=== PATIENT | male | born 1965 | race Caucasian/White ===

== ENCOUNTER 2021-02-10 14:15 | Inpatient (IN) | payer BC ==
[~2021-02-10] VITALS: Ht 185.4 cm; Wt 108.9 kg
[~2021-02-10 14:15] MED LIST: AMBIEN 10 MG TA10 MG PO; FLEXERIL PO; GLIMEPIRIDE4 MG PO; JARDIANCE25 MG PO; LEXAPRO20 MG PO; LIPITOR40 MG PO; LISINOPRIL10 MG PO; MELOXICAM15 MG PO; METFORMIN HCL500 MG PO; NORCO7.5 PO; SHINGRIX ADJUV0.5 ML IM; [UNRECOGNIZED DRUG - OTHER] IM
--- NOTE | 2021-02-10 18:21 | NUR ---
PT TRANSFERED FROM [facility] TO ROOM 209. IN ORIENTED TO ROOM AND BEDSPACE. MADE AWARE THAT PATIENT HAD ARRIVED ON THE UNIT. ADMISSION ASSESSMENT / HISTORY CHARTED - IN THE ROOM. UP AD CHAPARRITA STEADY ON FEET. DANIELE DIET AND FLUIDS. NO CO'S AT THE PRESENT TIME.
--- NOTE | 2021-02-10 18:36 | NUR ---
pt with co's of chest pain - dr at bedside - ntg increased to 15 mcs and ekg to be done - ordering trop. pt sitting in bed eating dinner.
[2021-02-10 20:07] VITALS: BP 132/79
[2021-02-11 00:08] VITALS: BP 108/70
[2021-02-11 04:02] VITALS: BP 123/81
[2021-02-11 04:47] LABS: HEMATOCRIT 40.1 % (42.0-52.0); HEMOGLOBIN 13.8 gm/dL (14.0-18.0); MCH 29.5 pg (26.0-34.0); MCHC 34.4 g/dL (28.0-37.0); MCV 85.7 fL (80.0-100.0); RBC 4.68 mil/uL (4.50-6.00); RDW 13.7 % (10.5-14.5); WBC 8.6 thou/uL (4.0-11.0)
[2021-02-11 05:07] LABS: ALBUMIN 3.5 g/dL (3.4-5.0); CALCIUM 8.8 mg/dL (8.5-10.1); CREATININE 0.9 mg/dL (0.7-1.3); POTASSIUM 3.9 mmol/L (3.5-5.1); TOTAL BILIRUBIN 0.5 mg/dL (0.2-1.0)
--- NOTE | 2021-02-11 05:26 | NUR ---
ASSESSMENT DOCUMENTED.PT A/OX3.ADMITTED W/CHEST PAIN.PT ON NITRO DRIP.VSS.PT CONTINUOUS TO C/O MILD CHEST PAIN,RATING PAIN AT 2-3 ON 1-10 PAIN SCALE.DENIES SOA OR PAIN RADIATION.RIGHT GROIN DRSG INTACT.NO HEMATOMA OR ACTIVE.RFA CARDIAC XENIA ACCESS UNDERGRADUATE ADVISOR,W/O HEMATOMA.IVF INFUSING.SR ON MONITOR.RA W/O RESP DISTRESS.VOIDING VIA BR.UP AD CHAPARRITA.PT ANTICPATING CARDIAC XENIA PROCEDURE TODAY.WILL CONT TO MONITOR PER POC.
--- NOTE | 2021-02-11 07:18 | EKG ---
[address] [address] ELECTROCARDIOGRAM REPORT Name: GEERAMEZTANYA Room #: 209-P ADM IN M.R.#: [id number] Admission: 02/10/21 Attend Phys: Onel Muniz MD Discharge: Date of : 61 Report #: [id number] [facility] Test Date: 2021-02-10 Test Time: 18:39:13 Pat Name: TANYA GEE Department: Room: 209 P Gender: M Mineral Mixer: FSCHWALBE : 1965 Requested By: Bonnie Garibay Order Number: [id number] MD: Barrington Arevalo Measurements Intervals [place] Rate: 87 P: 63 ID: 165 QRS: 66 QRSD: 106 T: 64 QT: 381 QTc: 459 Interpretive Statements Sinus rhythm No previous ECG available for comparison Electronically Signed On 02-11-2021 7:18:38 CDT by Barrington Arevalo [email or web address] <ELECTRONICALLY SIGNED> By: Barrington Arevalo MD, [facility] 02/11/21 0718 1839 1839 Barrington Arevalo MD, FACC /EPI
[2021-02-11 07:28] VITALS: BP 140/90
[2021-02-11 11:15] VITALS: BP 134/95
--- NOTE | 2021-02-11 17:04 | CATHLAB ---
[facility] [place] [address] INVASIVE PROCEDURE REPORT Name: TANYA GEE Room #: 209-P ADM IN M.R.#: [id number] Admission: 02/10/21 Attend Phys: Onel Muniz MD Discharge: Date of : 61 Report #: [id number] REPORT FOR: cc: FAM - No family physician/PCP FAM - No family physician/PCP Hector Castillo MD ~ APPROVED REPORT Study performed: 02/11/2021 12:26:19 Patient Details Patient Status: In-Patient Room #: The patient is a 55 year-old male Event Personnel Hector Castillo Legal Document Assistant, Saqib Thompson RN RN, Thalia Saldivar RTR, ESCALATOR OPERATOR Monitor, Jabier Zavaleta RTR Scrub, Barbara Walls RTR Monitor Procedures Performed Art Access - L femoral artery* FLIP Place w/wo Plasty Single RCA [id number] 24203 Initial Mod Sed Same Phys/QHP Gr5y 658140 90080 Mod Sed Same Phys/QHP Ea 650352 Hemostasis w/ Mynx Indication Non-STEMI , Dyspnea, Chest pain, The patient presented with chest pain and dyspnea to [facility]. Troponin levels were positive, diagnosed with a non-ST elevation NC. He underwent cardiac catheterization on February 10, found to have severe occlusion involving the RCA. PCI was attempted but unsuccessful due to inability to cross the mid RCA stenosis with a balloon. The patient [facility] for PCI versus CABG. After further discussion with the patient, will attempt PCI. Risk Factors Hypercholesterolemia, Coronary Artery DiseaseHypertension, Diabetes Tobacco History () Procedure Narrative The Left Groin^ was infiltrated with 1% Lidocaine subcutaneous anesthesia. A PINNACLE 6FR Sheath #[id number] sheath was inserted into the LFA^. Coronary angiography was performed using coronary diagnostic catheters. The right coronary system was accessed and visualized with a LAUNCHER 6FR AL75 #[id number] catheter. Closure device [facility] [address] [place] [address] INVASIVE PROCEDURE REPORT Name: TANYA GEE Room #: 209-P [facility] IN M.R.#: [id number] Admission: 02/10/21 Attend Phys: Onel Muniz MD Discharge: Date of : 61 Report #: [id number] was deployed with a Fr MYNXGRIP 6/7F #[id number]. The patient tolerated the procedure well and there were no complications associated with the procedure. There was no hematoma. Intraoperative Conscious Sedation Sedation start time: 12:44 Case end Time: 14:41 Fentanyl 50 mcg Versed 1 mg Fluoro Time: 39.00 minutes Dose: DAP 55012.90 cGycm2 6773 mGy Contrast Type and Amount: Omnipaque 295 ml Coronary Angiography The patient's coronary anatomy is right dominant. Diagnostic Cath Right Coronary Please see the diagnostic cardiac catheterization report from [facility] performed on February 10. There are severe lesions in the proximal and mid segments of the RCA. The tightest lesion is in the midsegment, at least 95%. This vessel is moderately calcified throughout. Hemodynamics The aortic pressure is 148/81 mmHg with a mean of 111 mmHg. PCI Technique Lesion Percutaneous coronary intervention was performed on the mid right coronary artery. The lesion stenosis prior to intervention was 95% with PAULIE 3 flow. A LAUNCHER 6FR AL75 #[id number] Guide Catheter was used to engage the RCA ostium. A Luge Wire .014 x 182CM #213642 Interventional Guidewire was used to cross the lesion. BALLOON DILATION A Balloon catheter MINI TREK RX 1.5 X 12 #[id number] was inserted and inflated up to 18.00atm for 4seconds. Additional Inflation: 18.00atm for 10seconds. A balloon catheter Mini Trek 2.0x15mm was inserted and inflated up to 20Atm for 34 sec/min: additional inflation at 20Atm for 10sec/min. A balloon catheter NC Trek 2.5x12mm was inserted and inflated up to 20Atm for 27sec/min: additional inflation at 20Atm for 15sec/min. A balloon catheter NC Trek 3.85j34go was inserted and inflated up to 18Atm for 25sec/min: additional inflation at 18Atm for 13sec/min, additonal inflation at 18Atm for 12 sec/min. STENT DEPLOYMENT A stent RESOLUTE DOMINIQUE RX 3.5 X 15 #[id number] was inserted and inflated [facility] [address] [place] [address] INVASIVE PROCEDURE REPORT Name: TANYA GEE Room #: 209-P [facility] IN M.R.#: [id number] Admission: 02/10/21 Attend Phys: Onel Muniz MD Discharge: Date of : 61 Report #: [id number] up to 16.00atm for 26seconds. POST STENT DEPLOYMENT BALLOON DILATION A Balloon catheter TREK NC RX 4.0 X 12 #[id number] was inserted and inflated up to 16.00atm for 15seconds. A ballon catheter NC Trek RX 4.00x8mm was inserted and inflated up to 18Atm for 16sec/min: additional inflation at 18Atm for 9sec/min Final angiography reveals 5 % stenosis with PAULIE 3 flow. COMMENTS Initially, a JR4 guide catheter was used for the PCI. I placed a luge wire into the distal RCA branches. Attempts at crossing a 1.5 mm compliant balloon across the mid RCA stenosis was unsuccessful. The JR4 guide was switched out to an Amplatz left 0.75 guide catheter. Again, attempts at crossing with a 1.5 mm balloon was unsuccessful. I then placed a BMW wire as a devi wire down into the distal RCA. This allowed me to pass a 1.5 mm balloon into the mid segment. This was followed by a 2.0 mm balloon. Both balloons were able to be inflated. This was followed by 2.5 mm noncompliant balloon, followed by a 3.0 mm noncompliant balloon. All these attempts had to use a devi wire. I was finally able to place 3.5 mm drug-eluting stents in the mid RCA segment. Another 3.5 mm stent was placed in the proximal segment. Both stents were postdilated with a 4.0 mm noncompliant balloon. PCI Technique Lesion 2 Percutaneous Coronary Intervention was performed on the proximal right coronary artery. The lesion stenosis prior to intervention was 70% with PAULIE 3 flow. A LAUNCHER 6FR AL75 #[id number] Guide Catheter was used to engage the ostium. A Luge Wire .014 x 182CM #096612 Interventional Guidewire was used to cross the lesion. Balloon Dilation A Balloon catheter TREK NC RX 2.5 X 12 #[id number] was inserted and inflated up to 20atm for 13seconds. Additional Inflation: 20atm for 9seconds. Stent Deployment A stent RESOLUTE DOMINIQUE RX 3.5 X 15 #[id number] was inserted and inflated up to 20.00atm for 16seconds. Post Stent Deployment Balloon Dilation A Balloon catheter TREK NC RX 4.0 X 12 #[id number] was inserted and inflated up to 20.00atm for 18seconds. [facility] [address] [place] [address] INVASIVE PROCEDURE REPORT Name: TANYA GEE Room #: 209-P [facility] IN .R.#: [id number] Admission: 02/10/21 Attend Phys: Onel Muniz MD Discharge: Date of : 61 Report #: [id number] Final angiography reveals 5 % stenosis with PAULIE 3 flow. Conclusion 1. Successful PCI with placement of 2 drug-eluting stents into the proximal and mid segments of the RCA. This was a complex PCI involving devi wire system right from the start. 2. Recommend dual antiplatelet therapy and aggressive risk factor management. <ELECTRONICALLY SIGNED> By: Hector Castillo MD 02/11/21 1704 170 1704 Hector Castillo MD /INF
--- NOTE | 2021-02-11 18:22 | NUR ---
assessment as charted - pt off unit for noon assess, in the superintendent geophysical laboratory. had 2 stents placed to the rca today. groing site and vitals stable post procedure. pt jarrett diet and fluids. no co's of pain or nasuea. remains on bedrest until 184. meds as per mar - no co's at the present time.
[2021-02-11 19:25] VITALS: BP 123/66
[2021-02-11 23:47] VITALS: BP 114/71
--- NOTE | 2021-02-12 03:39 | NUR ---
ASSESSMENTS CHARTED, MEDS CHARTED GIVEN. PATIENT STILL ON BEDREST AT START OF SHIFT. WAS IN THE CATHLAB DURING DAY AND RECEIVED TWO STENTS TO THE RCA. PATIENT STATED HIS CHEST PAIN WAS GONE, BUT HE WAS CONCERNED WITH HIS HEART RATE WHICH HAD STEADILY BEEN INCREASING. SPOKE WITH DR. DEL VALLE GOT A ONE TIME ORDER. LEFT GROIN SITE IS C/D/I/SOFT. PATIENT UP AT CHAPARRITA IN ROOM. ALERT AND ORIENTED, AGREES TO CALL IF NEEDED. FALL PRECAUTIONS IN PLACE DURING SHIFT.
[2021-02-12 04:18] VITALS: BP 142/7; BP 142/75
[2021-02-12 05:20] LABS: HEMATOCRIT 40.5 % (42.0-52.0); HEMOGLOBIN 13.7 gm/dL (14.0-18.0); MCH 29.2 pg (26.0-34.0); MCHC 33.8 g/dL (28.0-37.0); MCV 86.5 fL (80.0-100.0); RBC 4.69 mil/uL (4.50-6.00); RDW 13.9 % (10.5-14.5); WBC 9.5 thou/uL (4.0-11.0)
[2021-02-12 06:12] LABS: ALBUMIN 3.5 g/dL (3.4-5.0); CREATININE 0.9 mg/dL (0.7-1.3); POTASSIUM 3.9 mmol/L (3.5-5.1); TOTAL BILIRUBIN 0.3 mg/dL (0.2-1.0)
--- NOTE | 2021-02-12 07:09 | EKG ---
[address] [place] [address] ELECTROCARDIOGRAM REPORT Name: RAMEZ GEEAN Room #: 209-P ADM IN M.R.#: [id number] Admission: 02/10/21 Attend Phys: Onel Muniz MD Discharge: Date of : 61 Report #: [id number] [facility] Test Date: 2021-02-11 Test Time: 15:08:23 Pat Name: TANYA GEE Department: Room: 209 P Gender: M Counselor Manager: FSCHWALBE : 1965 Requested By: Hector Castillo Order Number: [id number] MD: Barrintgon Arevalo Measurements Intervals [place] Rate: 88 P: 57 AK: 157 QRS: 55 QRSD: 105 T: 72 QT: 385 QTc: 466 Interpretive Statements Sinus rhythm Compared to ECG 02/10/2021 18:39:13 No significant changes Electronically Signed On 02-12-2021 7:08:45 CDT by Barrington Arevalo [email or web address] <ELECTRONICALLY SIGNED> By: Barrington Arevalo MD, [facility] 02/12/21 0708 1508 1508 Barrington Arevalo MD, FACC /EPI
[2021-02-12 07:35] VITALS: BP 151/77
--- NOTE | 2021-02-12 08:18 | EKG ---
[address] [facility] [place] [address] ELECTROCARDIOGRAM REPORT Name: TANYA GEE Room #: 209-P ADM IN M.R.#: [id number] Admission: 02/10/21 Attend Phys: Onel Muniz MD Discharge: Date of : 61 Report #: [id number] [facility] Test Date: 2021-02-12 Test Time: 07:28:51 Pat Name: TANYA GEE Department: Room: 209 P Gender: M Artificial Flower Maker: RODOLFO : 1965 Requested By: Hector Castillo Order Number: [id number] MD: Cesar Pedroza Measurements Intervals [place] Rate: 100 P: 24 NC: 157 QRS: 56 QRSD: 104 T: 67 QT: 361 QTc: 466 Interpretive Statements Sinus tachycardia Small inferior Q waves Compared to ECG 02/11/2021 15:08:23 No significant change was found Electronically Signed On 02-12-2021 8:18:04 CDT by Cesar Pedroza [email or web address] <ELECTRONICALLY SIGNED> By: Cesar Pedroza MD, [facility] 02/12/2118 0728 Cesar Pedroza MD, FACC /EPI
[2021-02-12] MEDS ORDERED: ADULT LOW DOSE81 MG PO (08:55)
[2021-02-12] MEDS ORDERED: NITROGLYCERIN0.4 MG SUBLING (08:55)
[2021-02-12] MEDS ORDERED: EFFIENT10 MG PO (08:55)
[2021-02-12 11:06] VITALS: BP 141/73
--- NOTE | 2021-02-12 11:27 | 2DMMODE ---
[facility] [place] [address] 2 D/M-MODE ECHOCARDIOGRAM Name: TANYA GEE Room #: 209-P ADM IN M.R.#: [id number] Admission: 02/10/21 Attend Phys: Onle Muniz MD Discharge: Date of : 61 Report #: [id number] REPORT FOR: cc: AMIE - Kary family physician/PCP AMIE - Kary family physician/PCP Barrington Arevalo MD [facility] ~ APPROVED REPORT Study performed: 02/12/2021 08:01:01 EXAM: Comprehensive 2D, Doppler, and color-flow Echocardiogram Patient Location: In-Patient Room #: 209 Status: routine BSA: 2.32 HR: 86 bpm BP: 134/95 mmHg Rhythm: NSR Other Information Study Quality: Good Risk Factors: Cardiac Risk Factors: HTN Indications Diabetes Hypertension/HDD 2D Dimensions RVDd: 23.49 mm IVSd: 14.29 (7-11mm) LVOT Diam: 20.80 (18-24mm) LVDd: 38.60 mm PWd: 10.73 (7-11mm) Ascending Ao: 30.22 (22-36mm) LVDs: 29.79 (25-40mm) Left Atrium: 35.29 (27-40mm) Aortic Root: 33.34 mm Volumes Left Atrial Volume (Systole) Single Plane 4CH: 21.32 mL Single Plane 2CH: 24.74 mL Biplane LA Volume: 25.00 mL LA ESV Index: 11.00 mL/m2 Aortic Valve [facility] [address] [place] [address] 2 D/M-MODE ECHOCARDIOGRAM Name: TANYA GEE Room #: 209-P [facility] IN M.R.#: [id number] Admission: 02/10/21 Attend Phys: Onel Muniz MD Discharge: Date of : 61 Report #: [id number] AoV Peak Miguel Ángel.: 1.18 m/s AO Peak Gr.: 6.07 mmHg LVOT Max P.60 mmHg LVOT Max V: 0.95 m/s MAGGIE Vmax: 2.72 cm2 Mitral Valve E/A Ratio: 0.8 MV Decel. Time: 1647.01 ms MV E Max Miguel Ángel.: 0.42 m/s MV A Miguel Ángel.: 0.50 m/s MV PHT: 477.63 ms MVA (PHT): 1.89 cm2 IVRT: 69.20 ms Pulmonary Valve PV Peak Miguel Ángel.: 0.82 m/s PV Peak Gr.: 2.68 mmHg Pulmonary Vein P Vein S: 0.59 m/s P Vein A: 0.40 m/s P Vein D: 0.38 m/s P Vein A Dur.: 87.7 msec P Vein S/D Ratio: 1.55 Tricuspid Valve TR Peak Miguel Ángel.: 1.87 m/s RAP Estimate: 7.00 mmHg TR Peak Gr.: 14.00 mmHg RVSP: 21.00 mmHg Left Ventricle The left ventricle is normal size. There is normal LV segmental wall motion. There is normal left ventricular wall thickness. Left ventricular systolic function is normal. The left ventricular ejection fraction is within the normal range. LVEF is 55-60%. Transmitral Doppler flow pattern suggests impaired LV relaxation. Right Ventricle The right ventricle is normal size. The right ventricular systolic function is normal. Atria The left atrium size is normal. Atrial septal aneurysm is present. Injection of bubbles documented no interatrial shunt. The right atrium size is normal. Aortic Valve The aortic valve is normal in structure. No aortic regurgitation is present. There is no aortic valvular stenosis. [address] [address] 2 D/M-MODE ECHOCARDIOGRAM Name: TANYA GEE Room #: 209-P [facility] IN M.R.#: [id number] Admission: 02/10/21 Attend Phys: Onel Muniz MD Discharge: Date of : 61 Report #: [id number] Mitral Valve The mitral valve is normal in structure. There is no mitral valve regurgitation noted. No evidence of mitral valve stenosis. Tricuspid Valve The tricuspid valve is normal in structure. Trace to mild tricuspid regurgitation. PAP 21 mmHg Pulmonic Valve The pulmonary valve is normal in structure. There is no pulmonic valvular regurgitation. Great Vessels The aortic root is normal in size. IVC is normal in size and collapses >50% with inspiration. Pericardium There is no pericardial effusion. <Conclusion> Normal left ventricle size/wall thickness Ejection fraction 55% Grade 1 diastolic dysfunction Normal right ventricular size/function Normal atrial size Interatrial septal aneurysm Color-flow upper study was performed of the aortic/mitral/tricuspid/pulmonary valve Normal aortic/mitral valve structure and function Trace tricuspid valve insufficiency Pulmonary systolic pressure estimated 21 mmHg No pericardial effusion Normal aortic root size No evidence of ASD/VSD by color flow/bubble study <ELECTRONICALLY SIGNED> By: Barrington Arevalo MD, FACC 02/12/21 1126 25 25 Barrington Arevalo MD, FACC /INF
[2021-02-12 15:04] VITALS: BP 138/74
[2021-02-12] MEDS ORDERED: TOPROL XL25 MG PO (15:11)
[2021-02-12 15:39] VITALS: BP 138/74
--- NOTE | 2021-02-12 16:22 | NUR ---
RECIEVED THE PATIENT COSNCOUS AND ORIENTED.ON ROOM AIR BREATHING SPONTANEOUSLY.NOT IN PAIN OR DISTRESS.ALL NEEDS ATTENDED.DISCHARGE PACKET GIVEN AND EVERYTHING EXPLAINED TO THE PATIENT.INSTRUCTED ABOUT THE POST CATH SITE ON HIS LEFT GROIN.DISCHARGED PATIENT ON STABLE CONDITION.
== END 2021-02-12 16:15 | disposition home or self-care (01) | DRG 246 ==
LOC: TBA 14:15 → 2N 16:36
PROVIDERS: Internal Medicine Cardiovascular Disease; ADMIT Hospitalist; ATTEND Hospitalist
PROC: B2111ZZ Fluoroscopy of Multiple Coronary Arteries using Low Osmolar Contrast (ICD-10-PCS; principal; 2021-02-11)
PROC: 027035Z Dilation of Coronary Artery, One Artery with Two Drug-eluting Intraluminal Devices, Percutaneous Approach (ICD-10-PCS; principal; 2021-02-11)
PROC: 4A023N7 Measurement of Cardiac Sampling and Pressure, Left Heart, Percutaneous Approach (ICD-10-PCS; principal; 2021-02-11)
DX: I21.4 Non-ST elevation (NSTEMI) myocardial infarction (principal); I50.31 Acute diastolic (congestive) heart failure; I11.0 Hypertensive heart disease with heart failure; E11.9 Type 2 diabetes mellitus without complications; F32.9 Major depressive disorder, single episode, unspecified; F12.90 Cannabis use, unspecified, uncomplicated; E78.5 Hyperlipidemia, unspecified; G89.29 Other chronic pain; M54.9 Dorsalgia, unspecified; G47.00 Insomnia, unspecified; G47.30 Sleep apnea, unspecified; F17.200 Nicotine dependence, unspecified, uncomplicated; E78.00 Pure hypercholesterolemia, unspecified; I25.10 Atherosclerotic heart disease of native coronary artery without angina pectoris; Z82.49 Family history of ischemic heart disease and other diseases of the circulatory system; Z72.89 Other problems related to lifestyle; Z79.84 Long term (current) use of oral hypoglycemic drugs; Z79.899 Other long term (current) drug therapy
CPT/HCPCS: 10081

== ENCOUNTER 2021-07-23 12:11 | Observation (INO) | payer BC ==
[~2021-07-23] VITALS: Ht 185.4 cm; Wt 106.6 kg
[2021-07-23] VITALS (8 sets, daily range): BP systolic 126–150; BP diastolic 80–86
[~2021-07-23 12:11] MED LIST changes: -NEURONTIN 300M300 M2 PO; -ROSUVASTATIN CA40 MG PO
[2021-07-23 13:01] LABS: CALCIUM 9.3 mg/dL (8.5-10.1); POTASSIUM 3.9 mmol/L (3.5-5.1)
[2021-07-23 13:07] LABS: TOTAL BILIRUBIN 0.5 mg/dL (0.2-1.0); TOTAL PROTEIN 7.5 g/dL (6.4-8.2)
[2021-07-23] MEDS ORDERED: NEURONTIN 300M300 M2 PO (13:16)
[2021-07-23 13:28] LABS: HEMOGLOBIN 15.7 gm/dL (14.0-18.0); MCH 29.7 pg (26.0-34.0); MCHC 34.2 g/dL (28.0-37.0); MCV 86.8 fL (80.0-100.0); RBC 5.3 mil/uL (4.50-6.00); RDW 14.6 % (10.5-14.5); WBC 9.5 thou/uL (4.0-11.0)
--- NOTE | 2021-07-23 15:55 | CATHLAB ---
[facility] [place] [address] INVASIVE PROCEDURE REPORT Name: TANYA GEE Room #: 211-P [facility] Evelyn Duckworth#: [id number] Admission: 07/23/21 Attend Phys: Hector Castillo MD Discharge: Date of : 61 Report #: [id number] REPORT FOR: cc: FAM - No family physician/PCP FAM - No family physician/PCP Hector Castillo MD ~ APPROVED REPORT Study performed: 07/23/2021 13:07:04 Patient Details Patient Status: Out-Patient Room #: The patient is a 55 year-old male Event Personnel Hector Castillo Donor Services Specialist, Mari Travis RN RN, Thalia Saldivar RTR, A P SUPERVISOR Monitor, Barbara Walls RTR Scrub Procedures Performed Art Access - R femoral artery* Left Heart Cath w/or w/o Coronaries [id number] [facility] FLIP Place w/wo Plasty Single RCA 629612 Hemostasis w/ Mynx Indication Dyspnea, Unstable angina , Positive stress test, Chest pain Risk Factors Hypercholesterolemia, Coronary Artery DiseaseHypertension, Diabetes Previous Procedures/Diagnoses Previous PCI, Previous MT Procedure Narrative The Right Groin^ was infiltrated with 1% Lidocaine subcutaneous anesthesia. A PINNACLE 4FR Sheath #[id number] sheath was inserted into the RFA^. Coronary angiography was performed using coronary diagnostic catheters. The right coronary system was accessed and visualized with a JR4 catheter. The left coronary system was accessed and visualized with a JL4 catheter. The left ventricle was accessed and visualized with a JR4 catheter. Left ventricular/Aortic Valve gradient assessed via catheter pullback. Pre-demployment femoral angiogram was performed . Closure device was deployed with a 6 Fr MYNXGRIP 6/7F #[id number]. The patient tolerated the procedure well and [facility] [address] [place] [address] INVASIVE PROCEDURE REPORT Name: TANYA GEE Room #: 211-P [facility] IN .R.#: [id number] Admission: 07/23/21 Attend Phys: Hector Castillo MD Discharge: Date of : 61 Report #: [id number] there were no complications associated with the procedure. There was no hematoma. Intraoperative Conscious Sedation Fentanyl 100 mcg No conscious sedation was used. Fluoro Time: 17.07 minutes Dose: DAP 31679.20 cGycm2 2528 mGy Contrast Type and Amount: Omnipaque 200 ml Coronary Angiography The patient's coronary anatomy is right dominant. Diagnostic Cath Left Main Left main artery is a large-caliber vessel, patent with no flow-limiting lesions. LAD The LAD is a moderate-sized caliber vessel, traverses the anterior wall and terminates at the apex. There is mild disease in the proximal and mid segments, 20 to 30%. Diagonal 1 This is a small to moderate-sized caliber vessel, patent with no flow-limiting lesions. Circumflex The left circumflex has mild disease in the proximal segment, 30%. OM1 This is a small to moderate-sized caliber vessel, patent with no flow-limiting lesions. OM2 There is a moderate-sized caliber vessel, patent with no flow-limiting lesions. Right Coronary The RCA is a large, dominant vessel with calcifications throughout. In the near ostial/proximal segment, there is a 70% obstruction. There is a stent in the midsegment with severe restenosis, greater than 95%. R PDA There is a moderate-sized caliber vessel, patent with no flow-limiting lesions. RPLV There is a moderate-sized caliber vessel, patent with no flow-limiting lesions. Left Ventriculography Left Ventriculography was not performed. Ejection Fraction was 60% based off patient's Nuclear Cardiac Stress Test. An LVEDP was measured and there is no gradient across the outflow tract. Hemodynamics The aortic pressure is 127/73 mmHg with a mean of 96 mmHg. The left ventricular pressure is 132/4 mmHg with a mean of mmHg. [facility] [address] [place] [address] INVASIVE PROCEDURE REPORT Name: TANYA GEE Room #: 211-P [facility] IN M.R.#: [id number] Admission: 07/23/21 Attend Phys: Hector Castillo MD Discharge: Date of : 61 Report #: [id number] ventricular end diastolic pressure is 11 mmHg. PCI Technique Lesion Percutaneous coronary intervention was performed on the mid right coronary artery. The lesion stenosis prior to intervention was 95% with PAULIE 3 flow. A LAUNCHER 6FR AL75 #699026 Guide Catheter was used to engage the ostium. A Luge Wire .014 x 182CM #800343 Interventional Guidewire was used to cross the lesion. BALLOON DILATION A Balloon catheter Euphora RX 2.0 x12 #[id number] was inserted and inflated up to 14.00atm for 16seconds. POST STENT DEPLOYMENT BALLOON DILATION A Balloon catheter Euphora NC RX 4.0 x 15 #[id number] was inserted and inflated up to 18.00atm for 18seconds. Additional Inflation: 18.00atm for 19seconds. Final angiography reveals 25 % stenosis with PAULIE 3 flow. PCI Technique Lesion 2 Percutaneous Coronary Intervention was performed on the Sub ostial/proximal proximal right coronary artery. The lesion stenosis prior to intervention was 70% with PAULIE 3 flow. A LAUNCHER 6FR AL75 #023331 Guide Catheter was used to engage the ostium. A Luge Wire .014 x 182CM #929136 Interventional Guidewire was used to cross the lesion. Stent Deployment A drug-eluting stent RESOLUTE DOMINIQUE RX 4.5 X 12 #[id number] was inserted and inflated up to 14.00atm for 12seconds. Post Stent Deployment Balloon Dilation A Balloon catheter TREK NC RX 4.5 X 12 #[id number] was inserted and inflated up to 18.00atm for 11seconds. Additional Inflation: 16.00atm for 8seconds. Final angiography reveals 0 % stenosis with PAULIE 3 flow. Conclusion 1. PCI performed with placement of a drug-eluting stent into the sub-ostial/proximal RCA segment. 2. PCI performed with high-pressure dilation with noncompliant balloons into the severe restenotic lesion in the mid RCA segment. 3. There is mild disease in the LAD and left circumflex arteries. [facility] [address] [place] [address] INVASIVE PROCEDURE REPORT Name: TANYA GEE Room #: 211-P [facility] IN M.R.#: [id number] Admission: 07/23/21 Attend Phys: Hector Castillo MD Discharge: Date of : 61 Report #: [id number] 4. There is normal LV systolic function. 5. Recommend dual antiplatelet therapy and aggressive risk factor management. <ELECTRONICALLY SIGNED> By: Hector Castillo MD 07/23/21 1555 1555 1555 Hector Castillo MD /INF
--- NOTE | 2021-07-23 19:47 | NUR ---
Pt came from laborer yard at 1530. Mynx dressing was C/D/I. Pt was A&0x4, calm and cooperative. He got up to use the BR for BM. Dressing and insertion site still C/D/I. No hematomas During this time he became tachycardic (130). After he was back in bed his heart rate returned to 90s. Pt ate dinner and is now in bed sleeping.
[2021-07-24 00:17] VITALS: BP 134/92
[2021-07-24 03:39] VITALS: BP 144/93
--- NOTE | 2021-07-24 04:25 | NUR ---
ASSESSMENTS CHARTED, MEDS CHARTED GIVEN. PATIENT OFF BED REST AT START OF SHIFT FROM TUBE WASHER VISIT. PATIENT RECEIVED ONE STENT TO PROX RCA. RIGHT GROIN SITE DRY AND INTACT. PATIENT DENIES PAIN. PLANNING ON DISCHARGING IN THE AM.
[2021-07-24 05:40] LABS: HEMATOCRIT 45.1 % (42.0-52.0); HEMOGLOBIN 15.1 gm/dL (14.0-18.0); MCH 29.7 pg (26.0-34.0); MCHC 33.6 g/dL (28.0-37.0); MCV 88.5 fL (80.0-100.0); RBC 5.1 mil/uL (4.50-6.00); RDW 15.2 % (10.5-14.5); WBC 9.7 thou/uL (4.0-11.0)
[2021-07-24] MEDS ORDERED: ROSUVASTATIN CA40 MG PO ×2 (07:53→08:30)
[2021-07-24 08:00] VITALS: BP 131/83
[2021-07-24 10:00] VITALS: BP 131/83
--- NOTE | 2021-07-24 10:14 | EKG ---
[address] [address] ELECTROCARDIOGRAM REPORT Name: TANYA GEE Room #: 211-P [facility] M.R.#: [id number] Admission: 07/23/21 Attend Phys: Hector Castillo MD Discharge: Date of : 61 Report #: [id number] [facility] Test Date: 2021-07-24 Test Time: 07:37:20 Pat Name: TANYA GEE Department: Room: 211 P Gender: M Dental Biller: REJI : 1965 Requested By: Hector Castillo Order Number: [id number] MD: Hector Castillo Measurements Intervals [place] Rate: 74 P: 61 NH: 163 QRS: 42 QRSD: 110 T: 52 QT: 404 QTc: 449 Interpretive Statements Sinus rhythm Compared to ECG 07/23/2021 16:02:55 Right ventricular hypertrophy no longer present Electronically Signed On 07-24-2021 10:13:49 FIBER ANALYST by Hector Castillo [email or web address] <ELECTRONICALLY SIGNED> By: Hector Castillo MD 07/24/21 1013 0737 [id number] Hector Castillo MD /EPI
--- NOTE | 2021-07-24 10:16 | EKG ---
[place] [address] [facility] [address] [place] [address] ELECTROCARDIOGRAM REPORT Name: TANYA GEE Room #: 211-P [facility] M.R.#: [id number] Admission: 07/23/21 Attend Phys: Hector Castillo MD Discharge: Date of : 61 Report #: [id number] [facility] Test Date: 2021-07-23 Test Time: 16:02:55 Pat Name: TANYA GEE Department: Room: 211 P Gender: M Manager [employer]: CHARLIE : 1965 Requested By: Hector Castillo Order Number: [id number] MD: Hector Castillo Measurements Intervals [place] Rate: 84 P: 59 PA: 162 QRS: 72 QRSD: 108 T: 61 QT: 391 QTc: 463 Interpretive Statements Sinus rhythm RSR' in V1 or V2, right VCD Compared to ECG 02/12/2021 07:28:51 Right ventricular hypertrophy now present RSR' in V1 or V2 now present Sinus tachycardia no longer present Inferior Q waves no longer present Q waves no longer present Electronically Signed On 07-24-2021 10:16:38 MEMBERSHIP SALES REPRESENTATIVE by Hector Castillo [email or web address] <ELECTRONICALLY SIGNED> By: Hector Castillo MD 07/24/21 1016 160 160 Hector Castillo MD /EPI
--- NOTE | 2021-07-24 10:24 | NUR ---
PT IS ALERT AND ORIENTED X4. SR ON THE MONITOR AND RA. NO COMPLAINTS OF PAIN OR DISCOMFORT AT THIS TIME. RIGHT GROIN INSERTION SITE DRESSING C,D,&I. REVIEWED DISCHARGE INSTRUCTIONS WITH PT. GAVE PRESCRIPTION TO PT. PT VERBALIZED UNDERSTANDING OF DISCHARGE INSTRUCTIONS AND FOLLOW UP. WIATING FOR RIDE AT THIS TIME.
--- NOTE | 2021-07-24 11:24 | NUR ---
PT AMBULATED TO EXIT WITH STAFF. LEFT IN PRIVATE VEHICLE WITH FATHER IN LAW. PT HAS BELONGINGS.
== END 2021-07-24 13:27 | disposition home or self-care (01) ==
LOC: CATH 12:11 → 2N 15:29
PROVIDERS: ADMIT Internal Medicine Cardiovascular Disease; ATTEND Internal Medicine Cardiovascular Disease
DX: I25.110 Atherosclerotic heart disease of native coronary artery with unstable angina pectoris (principal); I10 Essential (primary) hypertension; E11.9 Type 2 diabetes mellitus without complications; E78.00 Pure hypercholesterolemia, unspecified; M19.90 Unspecified osteoarthritis, unspecified site; Z87.891 Personal history of nicotine dependence; Z79.82 Long term (current) use of aspirin; Z79.84 Long term (current) use of oral hypoglycemic drugs; Z79.899 Other long term (current) drug therapy

== ENCOUNTER → 2021-07-23 | Outpatient (CLI) | payer BC ==
[~2021-07-23] MED LIST changes: +ADULT LOW DOSE81 MG PO; +EFFIENT10 MG PO; +NEURONTIN 300M300 M2 PO; +NITROGLYCERIN0.4 MG SUBLING; +ROSUVASTATIN CA40 MG PO; +TOPROL XL25 MG PO
== END ==
LOC: SJCVCIMAG 07:12
PROVIDERS: ATTEND Internal Medicine Cardiovascular Disease
DX: I45.10 Unspecified right bundle-branch block (principal); R07.9 Chest pain, unspecified; I25.10 Atherosclerotic heart disease of native coronary artery without angina pectoris; E78.5 Hyperlipidemia, unspecified; J44.9 Chronic obstructive pulmonary disease, unspecified; E11.9 Type 2 diabetes mellitus without complications; I10 Essential (primary) hypertension; R06.00 Dyspnea, unspecified; Z79.899 Other long term (current) drug therapy